=== PATIENT | male | born 1970 | race Caucasian/White ===

== ENCOUNTER 2017-06-03 10:46 | Emergency (ER) | payer BC, OTHER ==
[2017-06-03 10:54] VITALS: PULSE 67; TEMP 96.9
--- NOTE | 2017-06-03 11:45 | XR ---
EXAMINATION TYPE: XR foot complete LT DATE OF EXAM: 06/03/2017 CLINICAL HISTORY: Dropped box injury with pain TECHNIQUE: Frontal, lateral, and oblique images of the left foot are obtained. COMPARISON: None FINDINGS: There is no acute fracture/dislocation evident in the left foot. Some flexion in toes make s evaluation at this level slightly suboptimal. The joint spaces in the left foot appear within hina l limits. The overlying soft tissue appears unremarkable. IMPRESSION: There is no acute fracture or dislocation in the left foot.
--- NOTE | 2017-06-03 12:08 | ED ---
General Adult HPI - General Chief complaint: Extremity Injury, Lower Stated complaint: [facility]-Foot Lac Time Seen by Provider: 06/03/17 11:15 Source: patient, EMS, RN notes reviewed Mode of arrival: EMS Limitations: no limitations - History of Present Illness Initial comments: Patient's a 46-year-old male who presents emergency room today with a chief complaint of injury to the left foot that occurred at work. He states he accidentally dropped a box of tile onto his foot was caused a laceration. He states he does have tenderness to the first through third metatarsals. Patient does admit his tetanus is up-to-date. He denies any bites or symptoms. Patient denies any recent fever, chills, shortness of breath, chest pain, back pain, abdominal pain, nausea or vomiting, numbness or tingling, headaches or visual changes, or any other complaints. - Related Data Previous Rx's Medication Instructions Recorded Ibuprofen [Motrin] 600 mg PO Q6HR PRN #40 day 06/03/17 Allergies Allergy/AdvReac Type Severity Reaction Status Date / Time No Known Allergies Allergy Verified 06/03/17 11:00 Review of Systems ROS Statement: Those systems with pertinent positive or pertinent negative responses have been documented in the HPI. ROS Other: All systems not noted in ROS Statement are negative. Past Medical History Past Medical History: No Reported History History of Any Multi-Drug Resistant Organisms: None Reported Past Surgical History: Hernia Repair, Orthopedic Surgery Past Psychological History: No Psychological Hx Reported Smoking Status: Former smoker Past Alcohol Use History: None Reported Past Drug Use History: None Reported General Exam - General Exam Comments Initial Comments: General: The patient is awake and alert, in no distress, and does not appear acutely ill. Neck: The neck is supple, there is no tenderness or JVD. Musculoskeletal: Patient shows good range of motion of his toes and his ankle. There is no tenderness in these areas. He is mildly tender on palpation to the first through third metatarsal. Pulses equal bilaterally 2+. Strength 5/5. Neurological: A&O x 3. CN II-XII intact, There are no obvious motor or sensory deficits. Coordination appears grossly intact. Speech is normal. Skin: Patient does have a 1 cm linear laceration wound edges approximated with no active bleeding. Psychiatric: Normal mood and affect. Limitations: no limitations Course Vital Signs 06/03/17 10:48 Temperature 96.9 F L Pulse Rate 67 Respiratory 18 Rate Blood Pressure 129/92 O2 Sat by Pulse 96 Oximetry Medical Decision Making - Medical Decision Making X-ray reviewed negative for any acute fracture dislocation. Patient advised follow-up in 7-10 days if symptoms persist for repeat x-ray. Patient's wound dressed here in the emergency room and he'll be advised follow-up with employee health. Disposition Clinical Impression: Foot contusion, Laceration Disposition: HOME SELF-CARE Condition: Good Instructions: Foot Contusion (ED) Additional Instructions: Please follow-up with employee health as discussed. Please have repeat x-ray in 7-10 days if symptoms are not improving. Please return here to emergency room for any other concerns. Prescriptions: Ibuprofen [Motrin] 600 mg PO Q6HR PRN #40 day PRN Reason: Pain Referrals: None,Stated [Primary Care Provider] - 1-2 days Andrew Mayer DO [Doctor of Osteopathic Medicine] - 1-2 days Time of Disposition: 12:06
[2017-06-03 12:15] VITALS: BP 131/74; RESP 16
== END 2017-06-03 12:15 | disposition home or self-care (01) ==
LOC: EC 10:46
DX: S91.312A Laceration without foreign body, left foot, initial encounter (principal); Z87.891 Personal history of nicotine dependence; W20.8XXA Other cause of strike by thrown, projected or falling object, initial encounter; Y92.69 Other specified industrial and construction area as the place of occurrence of the external cause; Y99.0 Civilian activity done for income or pay
CPT/HCPCS: 99283

== ENCOUNTER → 2017-06-08 | Outpatient (CLI) | payer OTHER ==
--- NOTE | 2017-06-08 13:11 | US ---
EXAMINATION TYPE: US venous doppler duplex LE BI DATE OF EXAM: 06/08/2017 12:28 PM COMPARISON: NONE CLINICAL HISTORY: M79.661Rt leg pain, M79.662LT pain, S90.32XA Lt foot contusion. Injury to left foot , bilateral calf pain SIDE PERFORMED: Bilateral TECHNIQUE: The lower extremity deep venous system is examined utilizing real time linear array sonog jozef with graded compression, doppler sonography and color-flow sonography. VESSELS IMAGED: External Iliac Vein (EIV) Common Femoral Vein Deep Femoral Vein Greater Saphenous Vein * Femoral Vein Popliteal Vein Small Saphenous Vein * Proximal Calf Veins (* superficial vessels) Right Leg: Negative for DVT Left Leg: Negative for DVT Grayscale, color doppler, spectral doppler imaging performed of the deep veins of the bilateral lower extremities. There is normal flow, compressibility, vascular waveforms. IMPRESSION: No ultrasound evidence for acute DVT in either lower extremity.
== END | disposition home or self-care (01) ==
LOC: RADUSWWP 11:43
PROVIDERS: ATTEND Emergency Medicine
DX: S90.32XA Contusion of left foot, initial encounter (principal); M79.661 Pain in right lower leg; M79.662 Pain in left lower leg
CPT/HCPCS: 93970

== ENCOUNTER 2017-08-28 20:44 | Emergency (ER) | payer OTHER ==
[2017-08-28 20:55] VITALS: BP 119/78; PULSE 86; RESP 16; TEMP 97.6
== END 2017-08-28 21:30 | disposition home or self-care (01) ==
LOC: EC 20:44

== ENCOUNTER 2019-02-06 14:55 | Emergency (ER) | payer BC, OTHER ==
[2019-02-06 14:59] VITALS: TEMP 97.6
[2019-02-06] MEDS ORDERED: SODIUM CHLORIDE 0.9% 1,000 ML IV STA (15:10)
[2019-02-06] MEDS ORDERED: diphenhydrAMINE 50 MG/ML 1 ML VIAL IVP STA (15:10)
[2019-02-06] MEDS ORDERED: METOCLOPRAMIDE 5 MG/ML 2 ML VIAL IVP STA (15:10)
--- NOTE | 2019-02-06 15:20 | ED ---
General Adult HPI - General Chief complaint: Headache Stated complaint: Dizziness Time Seen by Provider: 02/06/19 15:00 Source: patient, RN notes reviewed, old records reviewed Mode of arrival: wheelchair Limitations: no limitations - History of Present Illness Initial comments: 48-year-old male patient presents to ED complaining of headache. Patient was headaches and waxing and waning for approximately last 2 days. Reports it is a left frontal headache. Patient reports that started yesterday around noon. Reports that it gradually increased in intensity. Denies rapid onset. Patient reports that he has had some nausea without emesis. Patient reports that he had migraine headaches as a child however has not had headaches and years. Also reports he has had some mild sinus congestion the last 2 days as well. Denies any other complaints. Systemic: Pt denies fatigue, fever/chills, rash. Pt denies weakness, night sweats, weight loss. Neuro: Pt denies visual disturbances, syncope or pre-syncope. HEENT: Pt denies ocular discharge or irritation, otalgia, rhinorrhea, pharyngitis or notable lymphadenopathy. Cardiopulmonary: Pt denies chest pain, SOB, heart palpitations, dyspnea on exertion. Abdominal/GI: Pt denies abdominal pain, n/v/d. : Pt denies dysuria, burning w/ urination, frequency/urgency. Denies new onset urinary or bowel incontinence. MSK: Pt denies myalgia, loss of strength or function in extremities. Neuro: Pt denies new onset weakness, paresthesias. - Related Data Previous Rx's Medication Instructions Recorded Ibuprofen [Motrin] 600 mg PO Q6HR PRN #40 day 06/03/17 Amoxicillin/Potassium Clav 1 each PO Q12HR 14 Days #7 tab 02/06/19 [Augmentin 875-125 Tablet] Allergies Allergy/AdvReac Type Severity Reaction Status Date / Time No Known Allergies Allergy Verified 02/06/19 14:59 Review of Systems ROS Statement: Those systems with pertinent positive or pertinent negative responses have been documented in the HPI. ROS Other: All systems not noted in ROS Statement are negative. Past Medical History Past Medical History: No Reported History History of Any Multi-Drug Resistant Organisms: None Reported Past Surgical History: Hernia Repair, Orthopedic Surgery Past Psychological History: No Psychological Hx Reported Smoking Status: Former smoker Past Alcohol Use History: None Reported Past Drug Use History: None Reported General Exam - General Exam Comments Initial Comments: Constitutional: NAD, AOX3, Pt has pleasant affect. HEENT: NC/AT, trachea midline, neck supple, no lymphadenopathy. Posterior pharynx non erythematous, without exudates. External ears appear normal, without discharge. Mucous membranes moist. Eyes PERRLA, EOM intact. There is no scleral icterus. No pallor noted. Cardiopulmonary: RRR, no murmurs, rubs or gallops, no JVD noted. Lungs CTAB in anterior and posterior lopez. No peripheral edema. Abdominal exam: Abdomen soft and non-distended. Abdomen non-tender to palpation in all 4 quadrants. Bowel sounds active in LLQ. No hepatosplenomegaly. No ecchymosis Neuro: CN II-XII intact. No nuchal rigidity. No raccon eyes, no graham sign, no hemotympanum. No cervical spinal tenderness. MSK: No posterior calf tenderness bilaterally, homans sign negative bilaterally. Posterior tibialis and radial pulse +2 bilaterally. Sensation intact in upper and lower extremities. Full active ROM in upper and lower extremities, 5/5 stregnth. Limitations: no limitations Course Vital Signs 02/06/19 02/06/19 14:57 16:25 Temperature 97.6 F Pulse Rate 75 72 Respiratory 18 16 Rate Blood Pressure 124/83 111/79 O2 Sat by Pulse 96 99 Oximetry Medical Decision Making - Medical Decision Making 48-year-old male patient presents to ED complaining of headache. Patient was headaches and waxing and waning for approximately last 2 days. Reports it is a left frontal headache. Patient reports that started yesterday around noon. Reports that it gradually increased in intensity. Denies rapid onset. Patient reports that he has had some nausea without emesis. Patient reports that he had migraine headaches as a child however has not had headaches and years. Also reports he has had some mild sinus congestion the last 2 days as well. Denies any other complaints. Patient will signs stable, afebrile. Physical exam displayed normal neurologic exam. CT brain without contrast displayed extensive sinus disease, no acute intracranial hemorrhage or mass effect or midline shift seen. Dense middle cerebral arteries are symmetric and felt likely to upset imaging artifact cerebral vascular calcification or hemoconcentration affect. These findings were relayed to patient. Patient etiology of headache likely sinus infection. Patient headache resolved without any analgesia. Patient discharged with Augmentin. These findings related to patient. Patient will follow-up with primary care friend will return to ER if condition worsens. Case discussed with dr. ontiveros. Disposition Clinical Impression: Acute headache, Sinusitis Disposition: HOME SELF-CARE Condition: Stable Instructions (If sedation given, give patient instructions): Acute Headache (ED), Sinusitis (ED) Additional Instructions: Follow up with primary care provider with results of CAT scan. Take antibiotics as directed. Return to ER if condition worsens. Follow-up with primary care provider in 1-2 days. Prescriptions: Amoxicillin/Potassium Clav [Augmentin 875-125 Tablet] 1 each PO Q12HR 14 Days #7 tab Is patient prescribed a controlled substance at d/c from ED?: No Referrals: None,Stated [Primary Care Provider] - 1-2 days [facility] [NON-STAFF] - 1-2 days
--- NOTE | 2019-02-06 15:46 | CT ---
EXAMINATION TYPE: CT brain wo con DATE OF EXAM: 02/06/2019 COMPARISON: Prior CT 12/30/2015 HISTORY: Headache, LT christianity behind eye CT DLP: 1103.4 mGycm. Automated Exposure Control for Dose Reduction was Utilized. TECHNIQUE: CT scan of the head is performed without contrast. FINDINGS: There is no acute intracranial hemorrhage, mass effect, or midline shift identified. Naheed pect possible choroidal fissure cysts on the left. Middle cerebral arteries appears somewhat dense bu t are symmetric in appearance. There are cerebral vascular calcifications present. The ventricles and sulci are within normal limits in size. The globes are intact and the visualized sinuses are remark able for inflammatory change within the right maxillary sinus, ethmoid air cells, right frontal sinus , sphenoid sinus similar to prior exam. Mastoids are well aerated. IMPRESSION: Extensive sinus disease. No acute intracranial hemorrhage, mass effect, or midline shift is seen. Dense middle cerebral arteries are symmetric and felt more likely to represent imaging grisel fact, cerebral vascular calcification or hemoconcentration effect. Consider MRI for increased sensiti vity as indicated.
[2019-02-06] MEDS ORDERED: AMOXIC-POT CLAV 875MG STARTER 2 EACH TABLET PO STA (16:02)
[2019-02-06] MEDS ORDERED: AMOXIC-POT CLAV 875-125MG 1 EACH TAB PO STA (16:02)
[2019-02-06] MEDS ORDERED: KETOROLAC 30 MG/ML 1 ML VIAL IVP STA (16:02)
[2019-02-06 16:27] VITALS: PULSE 72; RESP 16
[2019-02-06 17:29] VITALS: BP 113/78
== END 2019-02-06 17:00 | disposition home or self-care (01) ==
LOC: EC 14:55
DX: J32.9 Chronic sinusitis, unspecified (principal); Z87.891 Personal history of nicotine dependence
CPT/HCPCS: 70450; 99284; 96374; 96375; 96361; J1200; J2765

== ENCOUNTER 2020-08-24 06:19 | Emergency (ER) | payer BC, OTHER ==
[2020-08-24 06:44] VITALS: BP 156/96; PULSE 85; RESP 18; TEMP 97.6
--- NOTE | 2020-08-24 07:09 | ED ---
Lower Extremity Injury HPI - General Chief Complaint: Extremity Injury, Lower Stated Complaint: [facility] LT foot injury Time Seen by Provider: 08/24/20 06:48 Source: patient, RN notes reviewed Mode of arrival: ambulatory Limitations: no limitations - History of Present Illness Initial Comments: This a 49-year-old male presents emergency Department chief complaint of left ankle pain. Patient states is getting off his HILO stepped unevenly on a piece of wood states he rolled his ankle. Patient went to lateral left ankle pain and swelling. No paresthesias. Patient states that he is had no prior fractures no foot pain. Patient offers no other complaints. - Related Data Previous Rx's Medication Instructions Recorded Ibuprofen [Motrin] 600 mg PO Q6HR PRN #40 day 06/03/17 Amoxicillin/Potassium Clav 1 each PO Q12HR 14 Days #7 tab 02/06/19 [Augmentin 875-125 Tablet] Ibuprofen [Motrin] 600 mg PO Q8HR PRN #20 tab 08/24/20 Allergies Allergy/AdvReac Type Severity Reaction Status Date / Time No Known Allergies Allergy Verified 08/24/20 06:44 Review of Systems ROS Statement: Those systems with pertinent positive or pertinent negative responses have been documented in the HPI. ROS Other: All systems not noted in ROS Statement are negative. Past Medical History Past Medical History: No Reported History History of Any Multi-Drug Resistant Organisms: None Reported Past Surgical History: Hernia Repair, Orthopedic Surgery Past Psychological History: No Psychological Hx Reported Smoking Status: Former smoker Past Alcohol Use History: Occasional Past Drug Use History: None Reported General Exam Limitations: no limitations General appearance: alert, in no apparent distress Head exam: Present: atraumatic, normocephalic, normal inspection Respiratory exam: Present: normal lung sounds bilaterally. Absent: respiratory distress, wheezes, rales, rhonchi, stridor Cardiovascular Exam: Present: regular rate, normal rhythm, normal heart sounds. Absent: systolic murmur, diastolic murmur, rubs, gallop, clicks Extremities exam: Present: other (Left ankle lateral malleolar region there is significant swelling, tenderness palpation there is also mild medial malleolar tenderness no foot or proximal tib-fib tenderness neurovascular intact) Skin exam: Present: warm, dry, intact, normal color. Absent: rash Course Vital Signs 08/24/20 06:36 Temperature 97.6 F Pulse Rate 85 Respiratory 18 Rate Blood Pressure 156/96 O2 Sat by Pulse 95 Oximetry - Reevaluation(s) Reevaluation #1: 08/24/20 07:15 Patient was offered pain medication, upon initial evaluation patient declines Medical Decision Making - Medical Decision Making X-rays were reviewed no acute fracture as read by radiologist. Patient was placed in a stirrup Aircast will follow-up with [facility] and orthopedics as needed return parameters were discussed. Disposition Clinical Impression: Left ankle sprain Disposition: HOME SELF-CARE Condition: Stable Instructions (If sedation given, give patient instructions): Ankle Sprain (ED) Additional Instructions: Please return to the Emergency Department if symptoms worsen or any other concerns. Prescriptions: Ibuprofen [Motrin] 600 mg PO Q8HR PRN #20 tab PRN Reason: Pain Is patient prescribed a controlled substance at d/c from ED?: No Referrals: None,Stated [Primary Care Provider] - 1-2 days Brendon Donato MD [STAFF PHYSICIAN] - 1-2 days Time of Disposition: 07:39
--- NOTE | 2020-08-24 07:25 | XR ---
EXAMINATION TYPE: XR ankle complete LT DATE OF EXAM: 08/24/2020 COMPARISON: NONE HISTORY: 49-year-old male with pain, lateral swelling, rolling injury. TECHNIQUE: 3 views FINDINGS: Marked lateral soft tissue swelling. Underlying small ankle joint effusion. Ankle mortise a ppears congruent with preservation of the distal tibia-fibula overlap. Talar dome is intact. Subtalar joint align. Small delineation of the Achilles tendon. Os trigonum incidentally noted. No acute frac ture, subluxation, dislocation seen. IMPRESSION: Marked lateral sided soft tissue swelling. Correlate for underlying ligamentous injury. No acute osse ous abnormality seen.
== END 2020-08-24 08:06 | disposition home or self-care (01) ==
LOC: EC 06:19
DX: S93.402A Sprain of unspecified ligament of left ankle, initial encounter (principal); X50.1XXA Overexertion from prolonged static or awkward postures, initial encounter; Z87.891 Personal history of nicotine dependence
CPT/HCPCS: 29515; 99283

== ENCOUNTER → 2020-09-05 | Outpatient (CLI) | payer BC, OTHER ==
--- NOTE | 2020-09-05 09:50 | MR ---
EXAMINATION TYPE: MR ankle LT wo con DATE OF EXAM: 09/05/2020 COMPARISON: 08/24/2020 HISTORY: Sprain left ankle, pain Standard multiplanar, multisequence MRI departmental protocol Multiplanar, multisequence images of the left ankle were acquired. Diffusion weighted imaging was per formed. FINDINGS: Tendons: The Achilles tendon is unremarkable. There is a small amount of edema surrounding the peroneal tendon s and posterior tibial tendon, most consistent with tendinopathy. The anterior tendons are intact. Ligaments: The anterior and posterior tibiofibular and talofibular ligaments are intact. The deltoid ligament is intact. The calcaneofibular ligament is intact. Plantar fascia: Plantar fascia is unremarkable. Sinus tarsi: There is preservation of the normal fatty T1 signal in the sinus tarsi. Subtalar: The subtalar joint is unremarkable without evidence for coalition. Ankle joint: There is a small ankle joint effusion. There is no definite osteochondral defect. There are partial-t hickness articular cartilage defects of the ankle joint. Bone marrow: There is subchondral marrow edema of the midfoot, most consistent with degenerative changes. Muscle: Musculature is unremarkable. Other: There is subcutaneous edema about the mid foot and ankle. IMPRESSION: 1. Peroneal and posterior tibial tendinopathy. 2. Degenerative changes of the midfoot and ankle joint with ankle joint effusion. 3. Subcutaneous edema about the mid foot and ankle.
== END | disposition home or self-care (01) ==
LOC: RADMRIMAIN 08:16
PROVIDERS: ATTEND Emergency Medicine
DX: S93.402A Sprain of unspecified ligament of left ankle, initial encounter (principal); M67.874 Other specified disorders of tendon, left ankle and foot

== ENCOUNTER → 2020-09-20 | Outpatient (CLI) | payer OTHER ==
--- NOTE | 2020-09-20 11:07 | XR ---
EXAMINATION TYPE: XR foot complete LT DATE OF EXAM: 09/20/2020 Comparison: 06/03/2017 Clinical History: 50-year-old male S93.402D, pain after injury on 08/24/2020. Possible fluid in foot. Findings: Incidental Bundy's toe. Bipartite fibular sesamoid. No acute fracture, subluxation, or dislocation s een. Normal variation os trigonum. No periostitis or osteolysis. Impression: No acute osseous abnormality seen.
== END | disposition home or self-care (01) ==
LOC: RADXRMAIN 10:37
PROVIDERS: ATTEND Emergency Medicine
DX: M79.672 Pain in left foot (principal)

== ENCOUNTER 2021-02-11 08:25 | Emergency (ER) | payer BC ==
[2021-02-11 08:54] VITALS: RESP 18
[2021-02-11] MEDS ORDERED: CASIRIVIMAB (REGN10933) (EUA) 600 MG, IMDEVIMAB (REGN10987) (EUA) 600 MG in SODIUM CHLO... IVPB ONE (10:00)
[2021-02-11] MEDS ORDERED: SODIUM CHLORIDE 0.9% 50 ML IVPB ONE (10:00)
--- NOTE | 2021-02-11 10:11 | ED ---
General Adult HPI - General Chief complaint: Headache Stated complaint: headache Time Seen by Provider: 02/11/21 09:36 Source: patient, RN notes reviewed Mode of arrival: ambulatory Limitations: no limitations - History of Present Illness Initial comments: 50-year-old male presents emergency Department with chief complaint of headache, sore throat. Patient states that symptoms started last night return again today. Patient has mild aches no CVA cough, shortness breath, chest pain, nausea vomiting diarrhea constipation no sick contacts. - Related Data Previous Rx's Medication Instructions Recorded Ibuprofen [Motrin] 600 mg PO Q6HR PRN #40 day 06/03/17 Amoxicillin/Potassium Clav 1 each PO Q12HR 14 Days #7 tab 02/06/19 [Augmentin 875-125 Tablet] Ibuprofen [Motrin] 600 mg PO Q8HR PRN #20 tab 08/24/20 Allergies Allergy/AdvReac Type Severity Reaction Status Date / Time No Known Allergies Allergy Verified 02/11/21 08:49 Review of Systems ROS Statement: Those systems with pertinent positive or pertinent negative responses have been documented in the HPI. ROS Other: All systems not noted in ROS Statement are negative. Past Medical History Past Medical History: No Reported History History of Any Multi-Drug Resistant Organisms: None Reported Past Surgical History: Hernia Repair, Orthopedic Surgery Additional Past Surgical History / Comment(s): colonoscopy Past Psychological History: No Psychological Hx Reported Smoking Status: Former smoker Past Alcohol Use History: Occasional Past Drug Use History: None Reported General Exam Limitations: no limitations General appearance: alert, in no apparent distress Head exam: Present: atraumatic, normocephalic, normal inspection Eye exam: Present: normal appearance, PERRL, EOMI. Absent: scleral icterus, conjunctival injection, periorbital swelling ENT exam: Present: normal exam, normal oropharynx, mucous membranes moist, TM's normal bilaterally Neck exam: Present: normal inspection, full ROM. Absent: tenderness, meningismus, lymphadenopathy Respiratory exam: Present: normal lung sounds bilaterally. Absent: respiratory distress, wheezes, rales, rhonchi, stridor Cardiovascular Exam: Present: regular rate, normal rhythm, normal heart sounds. Absent: systolic murmur, diastolic murmur, rubs, gallop, clicks Course Vital Signs 02/11/21 08:50 Temperature 98.4 F Pulse Rate 83 Respiratory 18 Rate Blood Pressure 135/74 O2 Sat by Pulse 96 Oximetry Medical Decision Making - Medical Decision Making Patient is positive for COVID-19 will be discharged after monoclonal antibodies return parameters were discussed. - Lab Data Lab Results 02/11/21 Range/Units 08:56 Coronavirus (PCR) Detected A (Not Detectd) Disposition Clinical Impression: COVID-19 Disposition: HOME SELF-CARE Condition: Stable Instructions (If sedation given, give patient instructions): Coronavirus Disease 2019 (COVID-19) Additional Instructions: Please return to the Emergency Department if symptoms worsen or any other concerns. Is patient prescribed a controlled substance at d/c from ED?: No Referrals: Patrice Obrien DO [Primary Care Provider] - 1-2 days Time of Disposition: 10:10
[2021-02-11 11:40] VITALS: BP 109/76; PULSE 77; TEMP 98.1
== END 2021-02-11 11:45 | disposition home or self-care (01) ==
LOC: EC 08:25
DX: U07.1 COVID-19 (principal); Z87.891 Personal history of nicotine dependence
CPT/HCPCS: 87635; 99284; 96365; 96361; Q0243

== ENCOUNTER 2022-11-20 10:44 | Inpatient (IN) | payer BC ==
--- NOTE | 2022-11-20 11:06 | ED ---
Abdominal Pain HPI - General Chief Complaint: Abdominal Pain Stated Complaint: Abd Pain Time Seen by Provider: 11/20/22 10:49 Source: patient, RN notes reviewed Mode of arrival: ambulatory Limitations: no limitations - History of Present Illness Initial Comments: This is a 52-year-old male who presents to the emergency department for right lower quadrant abdominal pain. He has had an intermittent sharp pain in the right lower quadrant region over the last couple weeks, however yesterday and today it became much worse and started to feel different. States that the pain is worse with movement. Denies any history of similar symptoms in the past. A lso denies any associated nausea, vomiting, or changes in bowel/bladder habits. Denies any fevers, chills, sore throat, cough, dyspnea, chest pain, palpitations, nausea, vomiting, diarrhea, back pain, or headaches. MD Complaint: abdominal pain Location: RLQ - Related Data Home Medications Medication Instructions Recorded Confirmed Atorvastatin [Lipitor] 10 mg PO DAILY 02/11/21 11/20/22 Losartan [Cozaar] 25 mg PO DAILY 02/11/21 11/20/22 Allergies Allergy/AdvReac Type Severity Reaction Status Date / Time No Known Allergies Allergy Verified 11/20/22 12:33 Review of Systems ROS Statement: Those systems with pertinent positive or pertinent negative responses have been documented in the HPI. ROS Other: All systems not noted in ROS Statement are negative. Past Medical History Past Medical History: No Reported History History of Any Multi-Drug Resistant Organisms: None Reported Past Surgical History: Hernia Repair, Orthopedic Surgery Additional Past Surgical History / Comment(s): colonoscopy Past Psychological History: No Psychological Hx Reported Smoking Status: Former smoker Past Alcohol Use History: Occasional Past Drug Use History: None Reported General Exam Limitations: no limitations General appearance: alert, in no apparent distress Head exam: Present: atraumatic, normocephalic, normal inspection Respiratory exam: Present: normal lung sounds bilaterally. Absent: respiratory distress, wheezes, rales, rhonchi, stridor Cardiovascular Exam: Present: regular rate, normal rhythm, normal heart sounds. Absent: systolic murmur, diastolic murmur, rubs, gallop, clicks GI/Abdominal exam: Present: soft, tenderness (RLQ), normal bowel sounds. Absent: distended Neurological exam: Present: alert, oriented X3, CN II-XII intact Psychiatric exam: Present: normal affect, normal mood Skin exam: Present: warm, dry, intact, normal color. Absent: rash Course Vital Signs 11/20/22 11/20/22 10:45 12:47 Temperature 97.9 F Pulse Rate 100 78 Respiratory 16 18 Rate Blood Pressure 148/83 142/80 O2 Sat by Pulse 97 98 Oximetry Medical Decision Making - Medical Decision Making This is a 52-year-old male who presents to the emergency department for abdominal pain. Was pt. sent in by a medical professional or institution? @ -No Did you speak to anyone other than the patient for history? @ -No Did you review nursing and triage notes? @ -Yes, and I agree, it is accurate with regards to the patient's symptoms. Were old charts reviewed? @ -No Differential Diagnosis? @ -Differential Abdominal Pain Men: Appendicitis, cholecystitis, diverticulosis, ischemic bowel, pancreatitis, hepatitis, UTI, gastroenteritis, AAA, incarcerated hernia, bowel obstruction, constipation, inflammatory bowel, hepatitis, peptic ulcer disease, splenic infarction, perforated viscus, testicular torsion, this is not meant to be an all-inclusive list EKG interpreted by me (3pts min.)? @ -EKG interpreted by me demonstrating the following: Sinus rhythm. Ventricular rate 65 bpm, CO interval 129 ms, QRS duration 73 ms, QTC 382 ms. X-rays interpreted by me (1pt min.)? @ -Not obtained CT interpreted by me (1pt min.)? @ -Computed tomography scan of the abdomen and pelvis obtained. My interpretation identifies dilation of the proximal appendix. U/S interpreted by me (1pt. min.)? @ -Not obtained What testing was considered but not performed? (CT, X-rays, U/S, labs)? Why? @ -None What meds were considered but not given? Why? @ -None Did you discuss the management of the patient with other professionals? @ -Yes, Dr. Mcgrath, who accepts the patient for admission. Did you reconcile home meds? @ -No Was smoking cessation discussed for >3mins.? @ -No Was critical care preformed (if so, how long)? @ -No Were there social determinants of health that impacted care today? How? (Homelessness, low income, unemployed, alcoholism, drug addiction, transportation, low edu. Level, literacy, decrease access to med. care, custodial, rehab)? @ -No Was there de-escalation of care discussed even if they declined? (Discuss DNR or withdrawal of care, Hospice)? @ -No What co-morbidities impacted this encounter? (DM, HTN, Smoking, COPD, CAD, Cancer, CVA, Hep., AIDS, mental health diagnosis, sleep apnea, morbid obesity)? @ -None Was patient admitted / discharged? @ -Admitted. Lab work obtained and found to be nonactionable. Patient declined the need for pain medication in the emergency department. Computed tomography scan of the abdomen and pelvis obtained revealing suspected acute proximal appendicitis, however typhlitis cannot be excluded. Case discussed with Dr. Mcgrath, general surgery. She advised that typhlitis would not require surgical intervention like an appendicitis would. Given the higher likelihood for appendicitis, even in the absence of leukocytosis or fevers, it would be best to admit the patient for further evaluation and management. He was started on IV fluids and Zosyn. Blood cultures obtained. We'll keep patient NPO in the event surgical intervention is needed. Undiagnosed new problem with uncertain prognosis? @ -None Drug Therapy requiring intensive monitoring for toxicity (Heparin, Nitro, Insuli n, Cardizem)? @ -None Were any procedures done? @ -None Diagnosis/symptom? @ -Acute appendicitis Acute, or Chronic, or Acute on Chronic? @ -Acute Uncomplicated (without systemic symptoms) or Complicated (systemic symptoms)? @ -Uncomplicated Side effects of treatment? @ -None Exacerbation, Progression, or Severe Exacerbation] @ -Not applicable Poses a threat to life or bodily function? @ -No This case was discussed in detail with the attending ED physician, Dr. Belcher. Presentation, findings, and treatment plan discussed in detail as well. - Lab Data Result diagrams: 11/20/22 11:10 11/20/22 11:10 Lab Results 11/20/22 11/20/22 11/20/22 Range/Units 11:10 11:10 11:10 WBC 5.2 (3.8-10.6) k/uL RBC 5.34 (4.30-5.90) m/uL Hgb 16.4 (13.0-17.5) gm/dL Hct 49.3 (39.0-53.0) % MCV 92.4 (80.0-100.0) fL MCH 30.7 (25.0-35.0) pg MCHC 33.2 (31.0-37.0) g/dL RDW 12.3 (11.5-15.5) % Plt Count 333 (150-450) k/uL MPV 6.9 Neutrophils % (Manual) 60 % Lymphocytes % (Manual) 31 % Monocytes % (Manual) 8 % Eosinophils % (Manual) 2 % Basophils % (Manual) 1 % Neutrophils # (Manual) 3.12 (1.3-7.7) k/uL Lymphocytes # (Manual) 1.61 (1.0-4.8) k/uL Monocytes # (Manual) 0.42 (0-1.0) k/uL Eosinophils # (Manual) 0.10 (0-0.7) k/uL Basophils # (Manual) 0.05 (0-0.2) k/uL Nucleated RBCs 0 (0-0) /100 WBC Manual Slide Review Performed RBC Morphology Normal Sodium 137 (137-145) mmol/L Potassium 4.5 (3.5-5.1) mmol/L Chloride 103 (98-107) mmol/L Carbon Dioxide 26 (22-30) mmol/L Anion Gap 8 mmol/L BUN 21 H (9-20) mg/dL Creatinine 0.86 (0.66-1.25) mg/dL Est GFR (CKD-EPI)AfAm >90 (>60 ml/min/1.73 sqM) Est GFR (CKD-EPI)NonAf >90 (>60 ml/min/1.73 sqM) Glucose 108 H (74-99) mg/dL Plasma Lactic Acid Cory 1.6 (0.7-2.0) mmol/L Calcium 8.8 (8.4-10.2) mg/dL Total Bilirubin 0.4 (0.2-1.3) mg/dL AST 24 (17-59) U/L ALT 22 (4-49) U/L Alkaline Phosphatase 67 (38-126) U/L Total Protein 7.1 (6.3-8.2) g/dL Albumin 4.1 (3.5-5.0) g/dL - Radiology Data Radiology results: report reviewed, image reviewed Disposition Clinical Impression: Acute appendicitis Disposition: ADMITTED IP TO THIS HOSP
[2022-11-20 11:39] LABS: ALT 22 U/L (4-49); AST 24 U/L (17-59); African American GFR (CKD) >90 (>60 ml/min/1.73 sqM); Albumin 4.1 g/dL (3.5-5.0); Alkaline Phosphatase 67 U/L (38-126); Anion Gap 8 mmol/L; Blood Urea Nitrogen 21 mg/dL (9-20); Calcium 8.8 mg/dL (8.4-10.2); Carbon Dioxide 26 mmol/L (22-30); Chloride 103 mmol/L (98-107); Glucose 108 mg/dL (74-99); Non-African American GFR(CKD) >90 (>60 ml/min/1.73 sqM); Potassium 4.5 mmol/L (3.5-5.1); Sodium 137 mmol/L (137-145); Total Bilirubin 0.4 mg/dL (0.2-1.3); Total Protein 7.1 g/dL (6.3-8.2)
[2022-11-20 11:41] LABS: HCT 49.3 % (39.0-53.0); HGB 16.4 gm/dL (13.0-17.5); MCH 30.7 pg (25.0-35.0); MCHC 33.2 g/dL (31.0-37.0); MCV 92.4 fL (80.0-100.0); Mean Platelet Volume 6.9; Platelet Count 333 k/uL (150-450); RBC 5.34 m/uL (4.30-5.90); RDW 12.3 % (11.5-15.5); WBC 5.2 k/uL (3.8-10.6)
[2022-11-20 12:33] LABS: Basophils # (M) 0.05 k/uL (0-0.2); Lymphocytes # (M) 1.61 k/uL (1.0-4.8); Monocytes # (M) 0.42 k/uL (0-1.0); Neutrophils # (M) 3.12 k/uL (1.3-7.7); Neutrophils % (M) 60 %; Nucleated Red Blood Cells 0 /100 WBC (0-0); RBC Morphology Normal; Total Cells Counted 200
--- NOTE | 2022-11-20 13:02 | CT ---
EXAMINATION TYPE: CT abdomen pelvis w con DATE OF EXAM: 11/20/2022 COMPARISON: None INDICATION: RLQ pain DLP: 1579.3 mGycm, Automated exposure control for dose reduction was used. CONTRAST: 100 mL of Isovue 300. Study performed without Oral Contrast TECHNIQUE: Axial images were obtained from above the diaphragm to the pubic rami in the axial plane a t 5 mm thick sections. Reconstructed images are reviewed on the computer in the coronal plane. FINDINGS: Limited CT sections are obtained the lung bases. The lung bases are clear. CT ABDOMEN: Liver: There is a 1 cm cyst within the anterior medial right lobe liver. Spleen: Normal Pancreas: Normal Adrenal glands: The adrenal glands are normal. Gallbladder: Normal Kidneys: No masses are evident. No hydronephrosis is present. No cysts are present. Delayed images were obtained through the kidneys, which remain unremarkable. Aorta: Vascular calcification is within the aorta. Inferior vena cava: Normal. CT PELVIS: Loops of bowel within the abdomen and pelvis are normal. There are loops of bowel which are incom pletely distended or lack oral contrast limiting their evaluation. Appendix: Proximal appendix is prominent measuring 1.3 cm. Inflammatory changes are at the base of th e appendix and adjacent to the cecum. The distal appendix has a normal caliber and is air filled with out wall thickening. Early acute appendicitis should be considered at the base of the appendix. Typhl itis could be considered within the differential. Report was called and case discussed with the emerg ency room at the time of interpretation. Urinary bladder: Normal. Genitourinary structures: Prostate is normal size. There may be some subtle heterogeneous density wit hin the prostate. Consider additional evaluation when the patient is stable. Osseous structures: No suspicious lytic or sclerotic lesions. Spondylolysis of L5 is evident. IMPRESSION: 1. Suspected proximal appendix acute appendicitis. Typhlitis may be considered, but less likely, wit hin the differential.
[2022-11-20] MEDS ORDERED: PIPERACILLIN-TAZOBACTAM 3.375 GM in SODIUM CHLORIDE 0.9% 100 ML IVPB STA (13:09)
[2022-11-20] MEDS ORDERED: NALOXONE 0.4 MG/ML 1 ML VIAL IV PRN (13:31)
[2022-11-20] MEDS ORDERED: ONDANSETRON 4 MG/2 ML VIAL IVP PRN (13:31)
[2022-11-20] MEDS ORDERED: ACETAMINOPHEN IV (For NPO) 1,000 MG in EMPTY BAG 1 BAG IVPB PRN (13:32)
[2022-11-20 15:56] LABS: Appearance,Urine Clear (Clear); Bilirubin,Urine Negative (Negative); Blood,Urine Small (Negative); Color,Urine Colorless; Glucose,Urine (UA) Negative (Negative); Ketones,Urine Negative (Negative); Leukocyte Esterase,Urine Negative (Negative); Nitrite,Urine Negative (Negative); Protein,Urine Negative (Negative); RBC,Urine 3 /hpf (0-5); Specific Gravity,Urine >1.050 (1.001-1.035); Urobilinogen,Urine <2.0 mg/dL (<2.0); WBC,Urine 1 /hpf (0-5)
[2022-11-20] MEDS: SODIUM CHLORIDE 0.9% 1,000 ML IV SCH ×2 (16:40→22:18)
[2022-11-20] MEDS: PIPERACILLIN-TAZOBACTAM 3.375 GM in SODIUM CHLORIDE 0.9% 100 ML IVPB SCH (20:21)
[2022-11-21] MEDS: PIPERACILLIN-TAZOBACTAM 3.375 GM in SODIUM CHLORIDE 0.9% 100 ML IVPB SCH ×3 (03:02→21:58)
[2022-11-21] MEDS: SODIUM CHLORIDE 0.9% 1,000 ML IV SCH ×3 (06:37→23:12)
--- NOTE | 2022-11-21 13:08 | P.PN ---
Subjective Progress Note Date: 11/21/22 CHIEF COMPLAINT: Appendicitis HISTORY OF PRESENT ILLNESS: Patient presented with right lower quadrant abd ominal pain and found to have an acute appendicitis. Patient scheduled for robotic appendectomy today. Afebrile. WBC 5.2 PHYSICAL EXAM: VITAL SIGNS: Reviewed GENERAL: Well-developed in no acute distress. HEENT: No sclera icterus. Extraocular movements grossly intact. Moist buccal mucosa. Head is atraumatic, normocephalic. Hears conversational speech. No nasal drainage. NECK: Supple without lymphadenopathy. CHEST: Non-labored respirations and equal bilateral excursions. CARDIOVASCULAR: Palpable 2+ radial pulses. ABDOMEN: Soft. Nondistended. Tenderness right lower quadrant MUSCULOSKELETAL: No clubbing or cyanosis. NEUROLOGIC: No focal or lateralizing signs. Cranial nerves II through XII grossly intact. PSYCH: Appropriate affect. Alert and oriented to person, place and time. SKIN: Well perfused. Good skin turgor. ASSESSMENT: 1. Acute appendicitis PLAN: -Patient scheduled for Robotic Appendectomy today -Okay for clear liquid diet this morning. Then keep patient nothing by mouth starting at lunch -Continue IV antibiotics -Continue supportive care Physician Foreign Diplomat note has been reviewed by physician. Signing provider agrees with the documented findings, assessment, and plan of care. Objective - Vital Signs Vital signs: Vital Signs Temp 97.5 F L 11/21/22 07:00 Pulse 57 L 11/21/22 07:00 Resp 16 11/21/22 07:00 BP 107/68 11/21/22 07:00 Pulse Ox 95 11/21/22 07:00 FiO2 Intake & Output 11/20/22 11/21/22 11/21/22 18:59 06:59 18:59 Weight 97.069 kg Other: # Voids 2 - Labs CBC & Chem 7: 11/20/22 11:10 11/20/22 11:10 Labs: Abnormal Lab Results - Last 24 Hours (Table) 11/20/22 Range/Units 11:10 Ur Specific [place] >1.050 H (1.001-1.035) Urine Blood Small H (Negative)
--- NOTE | 2022-11-21 14:16 | P.GSHP ---
History of Present Illness H&P Date: 11/20/22 CHIEF COMPLAINT: Right lower quadrant abdominal pain HISTORY OF PRESENT ILLNESS: The patient is a 52-year-old male who presents ever week history of generalized abdominal pain. Yesterday reports the pain localized right lower quadrant. Reports generalized malaise. No previous episodes. Comorbidities include hypertension and hyperlipidemia. Diagnostic studies demonstrated appendicitis. PAST MEDICAL HISTORY: See list and reviewed PAST SURGICAL HISTORY: See list and reviewed CURRENT MEDICATIONS: See list and reviewed ALLERGIES: See list and reviewed SOCIAL HISTORY: See list and reviewed FAMILY HISTORY: See list and reviewed REVIEW OF ORGAN SYSTEMS: CONSTITUTIONAL: Present fever, no chills. Denies recent weight loss. HEENT: Denies any trouble with vision, hearing or nosebleeds. No difficulty swallowing. LYMPHATIC: The patient denies any lumps and bumps around the neck. ENDOCRINE: Denies any thyroid disorders. Denies any blood sugar glucose intolerance. RESPIRATORY: Denies shortness of breath including chronic cough. CARDIOVASCULAR: Denies history of chest pain with exertion. GASTROINTESTINAL: Denies regurgitation of bile at night as well as intermittent nausea. No blood in stools. GENITOURINARY: Denies any blood in urine or increased urinary frequency. MUSCULOSKELETAL: Denies current joint arthritis. NEUROLOGIC: Denies any numbness or tingling along the distal extremities. No seizure disorders or headaches. PSYCHIATRIC: Denies any depression or suicidal ideation. HEMATOLOGIC: Denies any abnormal bleeding or bruising. PHYSICAL EXAMINATION: VITALS: Reviewed. GENERAL: Well-developed and in no acute distress. Pleasant. HEENT: No sclera icterus. Extraocular movements grossly intact. Moist buccal mucosa. Head is atraumatic, normocephalic. Hears conversational speech. No nasal drainage. NECK: Supple without lymphadenopathy. No JV distention. CHEST: Non-labored respirations and equal bilateral excursions. CARDIOVASCULAR: Regular rate and rhythm. Palpable 2+ radial pulses. ABDOMEN: Soft, tender at the right lower quadrant without guarding. MUSCULOSKELETAL: No clubbing, cyanosis or edema. NEUROLOGIC: No focal or lateralizing signs. PSYCH: Appropriate affect. Alert and oriented to person, place and time. SKIN: Well perfused. Good skin turgor. LABS: Reviewed. STUDIES: CT of the abdomen and pelvis reviewed with findings consistent with appendicitis. ASSESSMENT: 1. Right lower quadrant pain. 2. Appendicitis PLAN: 1. I have discussed benefits and risks of robotic appendectomy. 2. Bilateral SCDs. 3. Antibiotics intravenous Thank you very much for allowing me to participate in the care of your patient. Past Medical History Past Medical History: No Reported History History of Any Multi-Drug Resistant Organisms: None Reported Past Surgical History: Hernia Repair, Orthopedic Surgery Additional Past Surgical History / Comment(s): colonoscopy Past Psychological History: No Psychological Hx Reported Smoking Status: Former smoker Past Alcohol Use History: Occasional Past Drug Use History: None Reported Medications and Allergies Home Medications Medication Instructions Recorded Confirmed Type Atorvastatin [Lipitor] 10 mg PO DAILY 02/11/21 11/20/22 History Losartan [Cozaar] 25 mg PO DAILY 02/11/21 11/20/22 History Allergies Allergy/AdvReac Type Severity Reaction Status Date / Time No Known Allergies Allergy Verified 11/20/22 12:33 Surgical - Exam Vital Signs Temp Pulse Resp BP Pulse Ox 97.9 F 100 16 148/83 97 11/20/22 10:45 11/20/22 10:45 11/20/22 10:45 11/20/22 10:45 11/20/22 10:45 Results - Labs 11/20/22 11:10 11/20/22 11:10 Abnormal Lab Results - Last 24 Hours (Table) 11/20/22 11/20/22 Range/Units 11:10 11:10 BUN 21 H (9-20) mg/dL Glucose 108 H (74-99) mg/dL Ur Specific [place] >1.050 H (1.001-1.035) Urine Blood Small H (Negative) Diabetes panel 11/20/22 Range/Units 11:10 Sodium 137 (137-145) mmol/L Potassium 4.5 (3.5-5.1) mmol/L Chloride 103 (98-107) mmol/L Carbon Dioxide 26 (22-30) mmol/L BUN 21 H (9-20) mg/dL Creatinine 0.86 (0.66-1.25) mg/dL Glucose 108 H (74-99) mg/dL Calcium 8.8 (8.4-10.2) mg/dL AST 24 (17-59) U/L ALT 22 (4-49) U/L Alkaline Phosphatase 67 (38-126) U/L Total Protein 7.1 (6.3-8.2) g/dL Albumin 4.1 (3.5-5.0) g/dL Calcium panel 11/20/22 Range/Units 11:10 Calcium 8.8 (8.4-10.2) mg/dL Albumin 4.1 (3.5-5.0) g/dL Pituitary panel 11/20/22 Range/Units 11:10 Sodium 137 (137-145) mmol/L Potassium 4.5 (3.5-5.1) mmol/L Chloride 103 (98-107) mmol/L Carbon Dioxide 26 (22-30) mmol/L BUN 21 H (9-20) mg/dL Creatinine 0.86 (0.66-1.25) mg/dL Glucose 108 H (74-99) mg/dL Calcium 8.8 (8.4-10.2) mg/dL Adrenal panel 11/20/22 Range/Units 11:10 Sodium 137 (137-145) mmol/L Potassium 4.5 (3.5-5.1) mmol/L Chloride 103 (98-107) mmol/L Carbon Dioxide 26 (22-30) mmol/L BUN 21 H (9-20) mg/dL Creatinine 0.86 (0.66-1.25) mg/dL Glucose 108 H (74-99) mg/dL Calcium 8.8 (8.4-10.2) mg/dL Total Bilirubin 0.4 (0.2-1.3) mg/dL AST 24 (17-59) U/L ALT 22 (4-49) U/L Alkaline Phosphatase 67 (38-126) U/L Total Protein 7.1 (6.3-8.2) g/dL Albumin 4.1 (3.5-5.0) g/dL
[2022-11-21] MEDS: MORPHINE SULFATE 2 MG/ML SYRINGE IVP PRN (17:09)
[2022-11-21] MEDS ORDERED: PROPOFOL 10 MG/ML 20 ML VIAL IV ONE (18:46)
[2022-11-21] MEDS ORDERED: NEOSTIGMINE 1 MG/ML 10 ML VIAL ONE (18:46)
[2022-11-21] MEDS ORDERED: KETOROLAC 15 MG/ML 1 ML VIAL ONE (18:46)
[2022-11-21] MEDS ORDERED: GLYCOPYRROLATE 0.2 MG/ML 2 ML VIAL ONE (18:46)
[2022-11-21] MEDS ORDERED: ROCURONIUM 10 MG/ML (5 ML VIAL) IV ONE (18:46)
[2022-11-21] MEDS ORDERED: DEXAMETHASONE SOD PHOSPHATE 4 MG/ML 1 ML VIAL ONE (18:46)
[2022-11-21] MEDS ORDERED: SUCCINYLCHOLINE CHLORIDE 200 MG/10 ML VIAL IV ONE (18:46)
[2022-11-21] MEDS ORDERED: fentaNYL (PF) 50 MCG/ML 2 ML AMP ONE (18:46)
[2022-11-21] MEDS ORDERED: HEPARIN SODIUM,PORCINE 5,000 UNIT/ML 1 ML VIAL ONE (18:46)
[2022-11-21] MEDS ORDERED: MIDAZOLAM 2 MG/2 ML VIAL ONE (18:46)
[2022-11-21] MEDS ORDERED: ONDANSETRON 4 MG/2 ML VIAL ONE (18:46)
[2022-11-21] MEDS ORDERED: LIDOCAINE 2% INJ 20 MG/ML (2 ML VIAL) ONE (18:46)
[2022-11-21] MEDS ORDERED: LACTATED RINGERS 1,000 ML IV ONE (18:48)
[2022-11-21] MEDS ORDERED: BUPIVACAINE (PF) 0.5% 30 ML VIAL SQ ONE (19:12)
--- NOTE | 2022-11-21 20:45 | P.OP ---
Date of Procedure: 11/21/22 Description of Procedure: SURGEON: JONATHAN MIRANDA MD Preoperative Diagnosis: 1. Acute appendicitis Postoperative Diagnosis: 1. Acute appendicitis, retrocecal with periappendicitis Procedure(s) Performed: 1. Robotic-assisted daVinci Xi laparoscopic appendectomy Anesthesia: GETA, local Estimated Blood Loss (ml): 10 Pathology: other (appendix) Condition: stable Disposition: floor Operative Findings: 1. Acute appendicitis without rupture with periappendicitis, retrocecal 2. Terminal ileum unremarkable 3. Cecum unremarkable 4. Appendix coursing along the retroperitoneum through redundant ascending colon towards the gallbladder adding complexity to the case 5. Extensive adhesional lysis for mobilizing mesial appendix and appendix over 45 minutes 6. Right lower quadrant peritoneal adhesions with inguinal hernia, indirect INDICATIONS: The patient is a 52-year-old male who presents with over several week history with abdominal pain and diagnostic imaging of acute appendicitis. Benefits and risks, including infection, open surgery, and bleeding for additional surgery was discussed at length. Informed consent was obtained. All questions of the patient and family were answered. DESCRIPTION: The patient was transferred to the operating room and placed in supine position. The patient had previously voided. The abdomen was then prepped and draped in standard sterile fashion as [place]an was placed along the abdomen to minimize any contamination of skin floor. After a timeout protocol was performed, attention was then brought to the left upper quadrant whereby a 0 degree 5 mm laparoscopic trocar entry was performed. The abdominal cavity was entered and insufflated to 12 mmHg pressure, which was tolerated well. Diagnostic laparoscopy demonstrated no injury to bowel, viscera or mesentery. Next a robotic 8-mm trocar was placed along the left lower quadrant, 10-cm lateral to the midline. A 12 mm port was placed along the left upper quadrant and another 8-mm port left lateral abdominal wall. Ports were placed 8 cm apart from each other including 15-20 cm away from the target anatomy of the right pelvis. The patient was then placed in Trendelenburg position, at least 14 down and right side up at least 7. The robotic da Mango XI system was primed and docked from the left side of the patient. Using atraumatic graspers and vessel sealer, the robotic system was docked and primed as described. Instruments were interchanged by the personal care assistant including graspers, robotic stapler and vessel sealer. Next, attention was brought to identify the cecum. A systematic view within the abdominal cavity was started with the small bowel which was unremarkable. The base of the cecum was unremarkable. The appendix was retrocecal coursing towards right upper quadrant behind the ascending colon with additional dissection required. The body of the appendix was moderately dilated with moderate periappendicitis. No perforation was identified. The appendix was dissected free from its surrounding tissues. Blue 45 mm robotic staple loads were fired along the base of the appendix. The staple line was hemostatic. Hemostasis was checked prior to undocking the robot. The robot was undocked. I re-scrubbed into the case. The specimen was removed from the abdominal cavity with an Endo Catch bag through the 12 mm trocar at the left upper quadrant. All instruments and pneumoperitoneum were evacuated from the abdominal cavity. Local anesthetic was infiltrated to all wounds for postop analgesia. All incisions were also cleansed with diluted hydrogen peroxide. The incisions were closed with 4-0 Monocryl. Exofin glue was applied to the rest of the skin incisions. The patient had tolerated the procedure well. The patient was extubated successfully. The patient was transferred to the postanesthesia care unit in stable condition.
[2022-11-21] MEDS ORDERED: ACETAMINOPHEN IV (For NPO) 1,000 MG in EMPTY BAG 1 BAG IVPB ONE (20:46)
[2022-11-21] MEDS ORDERED: HYDROmorphone 1 MG/ML 1 ML SYRINGE IVP PRN (20:46)
[2022-11-21] MEDS ORDERED: ONDANSETRON 4 MG/2 ML VIAL IVP ONE (20:59)
[2022-11-21] MEDS: MORPHINE SULFATE 4 MG/ML SYRINGE IV PRN (23:18)
[2022-11-22] MEDS: PIPERACILLIN-TAZOBACTAM 3.375 GM in SODIUM CHLORIDE 0.9% 100 ML IVPB SCH ×3 (04:31→20:11)
[2022-11-22] MEDS: SODIUM CHLORIDE 0.9% 1,000 ML IV SCH ×3 (04:33→18:22)
[2022-11-22] MEDS: MORPHINE SULFATE 4 MG/ML SYRINGE IV PRN (08:42)
[2022-11-22 09:20] LABS: Basophils % (A) 0 %; Eosinophils % (A) 0 %; HCT 45.9 % (39.0-53.0); Lymphocytes # (A) 0.6 k/uL (1.0-4.8); Lymphocytes % (A) 7 %; MCH 30.4 pg (25.0-35.0); MCHC 32.7 g/dL (31.0-37.0); MCV 92.8 fL (80.0-100.0); Mean Platelet Volume 7.7; Monocytes # (A) 0.5 k/uL (0-1.0); Monocytes % (A) 5 %; Neutrophils # (A) 7.9 k/uL (1.3-7.7); Neutrophils % (A) 86 %; Platelet Count 343 k/uL (150-450); RBC 4.95 m/uL (4.30-5.90); RDW 12.7 % (11.5-15.5); WBC 9.1 k/uL (3.8-10.6)
[2022-11-22 10:00] LABS: ALT 20 U/L (4-49); AST 24 U/L (17-59); African American GFR (CKD) >90 (>60 ml/min/1.73 sqM); Albumin 3.6 g/dL (3.5-5.0); Albumin/Globulin Ratio 1.2; Alkaline Phosphatase 77 U/L (38-126); Anion Gap 9 mmol/L; Blood Urea Nitrogen 17 mg/dL (9-20); Calcium 8.3 mg/dL (8.4-10.2); Carbon Dioxide 23 mmol/L (22-30); Chloride 102 mmol/L (98-107); Globulin 2.9 g/dL; Glucose 126 mg/dL (74-99); Non-African American GFR(CKD) >90 (>60 ml/min/1.73 sqM); Potassium 4.4 mmol/L (3.5-5.1); Sodium 134 mmol/L (137-145); Total Bilirubin 0.5 mg/dL (0.2-1.3); Total Protein 6.5 g/dL (6.3-8.2)
[2022-11-22] MEDS ORDERED: SODIUM CHLORIDE 0.9% 2,000 ML IV ONE (10:41)
[2022-11-22] MEDS: KETOROLAC 15 MG/ML 1 ML VIAL IVP SCH ×2 (11:23→18:17)
[2022-11-22] MEDS: ACETAMINOPHEN TAB 500 MG TAB PO SCH ×2 (11:23→18:19)
[2022-11-22] MEDS: GABAPENTIN 300 MG CAP PO SCH ×3 (11:24→20:11)
--- NOTE | 2022-11-22 15:11 | P.PN ---
Subjective Progress Note Date: 11/22/22 Reports right upper quadrant abdominal pain after eating sausages. Intraoperatively adhesions of gallbladder found. Surgery findings reviewed for retrocecal appendicitis. Will obtain US for gallstones due to clinical findings and symptoms. Objective - Vital Signs Vital signs: Vital Signs Temp 97.8 F 11/22/22 07:00 Pulse 69 11/22/22 07:00 Resp 16 11/22/22 07:00 BP 107/58 11/22/22 07:00 Pulse Ox 95 11/22/22 07:00 FiO2 Intake & Output 11/21/22 11/22/22 11/22/22 18:59 06:59 18:59 Intake Total 850 0 Output Total 10 Balance 850 -10 Intake: IV 850 0 Output: Estimated Blood Loss 10 Other: # Voids 5 3 2 # Bowel Movements 5 - Labs CBC & Chem 7: 11/22/22 08:00 11/22/22 08:00 Labs: Abnormal Lab Results - Last 24 Hours (Table) 11/22/22 11/22/22 Range/Units 08:00 08:00 Neutrophils # 7.9 H (1.3-7.7) k/uL Lymphocytes # 0.6 L (1.0-4.8) k/uL Sodium 134 L (137-145) mmol/L Glucose 126 H (74-99) mg/dL Calcium 8.3 L (8.4-10.2) mg/dL Microbiology - Last 24 Hours (Table) 11/20/22 14:29 Blood Culture - Preliminary Blood 11/20/22 14:29 Blood Culture - Preliminary Blood
[2022-11-23] MEDS: KETOROLAC 15 MG/ML 1 ML VIAL IVP SCH ×4 (00:23→18:15)
[2022-11-23] MEDS: ACETAMINOPHEN TAB 500 MG TAB PO SCH ×4 (00:24→18:13)
[2022-11-23] MEDS: SODIUM CHLORIDE 0.9% 1,000 ML IV SCH ×3 (03:33→18:17)
[2022-11-23] MEDS: PIPERACILLIN-TAZOBACTAM 3.375 GM in SODIUM CHLORIDE 0.9% 100 ML IVPB SCH ×3 (04:59→20:34)
[2022-11-23] MEDS: GABAPENTIN 300 MG CAP PO SCH ×3 (08:07→20:34)
--- NOTE | 2022-11-23 11:16 | US ---
EXAMINATION TYPE: US gallbladder DATE OF EXAM: 11/23/2022 COMPARISON: CT dated 11/20/2022 CLINICAL INDICATION: Male, 52 years old with history of Right upper quadrant pain; TECHNIQUE: Multiple sonographic images of the right upper quadrant are obtained. FINDINGS: EXAM MEASUREMENTS: Liver Length: 14.4 cm Gallbladder Wall: 0.3 cm CBD: 0.3 cm Right Kidney: 10.7 x 5.8 x 5.7 cm REAL [employer]STATE OPERATIONS MANAGER NOTES:Patient just had an appendectomy and is very tender. Pancreas: not well visualized, mostly obscured by bowel gas. Liver: small cystic area adjacent to gallbladder measures 0.9 x 0.9 x 0.9 cm. Gallbladder: No stones seen Evidence for sonographic Hathaway's sign: Yes CBD: wnl Right Kidney: No hydronephrosis or masses seen No suspicious fluid collections are evident. IMPRESSION: 1. No acute right upper quadrant ultrasound abnormality..
[2022-11-23] MEDS ORDERED: IOPAMIDOL CONTRAST (ORAL USE) VIAL PO PRN (14:08)
--- NOTE | 2022-11-23 14:08 | P.PN ---
Subjective Progress Note Date: 11/23/22 Principal diagnosis: He reports moderate right flank and right upper quadrant abdominal pain radiating to his back after eating. US gallbladder reviewed without gallstones identified. PLAN: 1. Location of right flank pain also includes possible kidney stones. Repeat CT without IV contrast with oral contrast 2. Continue IV antibiotics 3. Scheduled gas-x 4. Continue hospitalization Objective - Vital Signs Vital signs: Vital Signs Temp 97.6 F 11/23/22 08:00 Pulse 64 11/23/22 08:00 Resp 16 11/23/22 08:00 BP 136/91 11/23/22 08:00 Pulse Ox 95 11/23/22 09:13 FiO2 Intake & Output 11/22/22 11/23/22 11/23/22 18:59 06:59 18:59 Other: # Voids 2 3 # Bowel Movements 0 - Labs CBC & Chem 7: 11/22/22 08:00 11/22/22 08:00 Labs: Microbiology - Last 24 Hours (Table) 11/20/22 14:29 Blood Culture - Preliminary Blood 11/20/22 14:29 Blood Culture - Preliminary Blood
[2022-11-23] MEDS: SIMETHICONE 80 MG CHEWABLE PO SCH ×2 (15:25→20:34)
[2022-11-23] MEDS: MORPHINE SULFATE 2 MG/ML SYRINGE IVP PRN ×2 (15:25→20:41)
--- NOTE | 2022-11-23 16:35 | CT ---
EXAMINATION TYPE: CT abdomen pelvis wo con DATE OF EXAM: 11/23/2022 COMPARISON: 11/20/2022 HISTORY: right flank pain CT DLP: 1114.9 mGycm Automated exposure control for dose reduction was used. TECHNIQUE: Helical acquisition of images was performed from the lung bases through the pelvis. FINDINGS: There are mild chronic interstitial changes in the lung bases. The soft tissues of the left upper quadrant anterior abdominal wall there is a few droplets of air an d there is free air within the peritoneal cavity within the anterior midline in beneath right hemidia phragm. There are also droplets of air within the mesentery in the right flank adjacent to the tip of the cecum. There are mild inflammatory changes within the mesentery. Given the bowel appendicitis on the prior study findings raise the question of recent surgery for appendicitis. There is a contrast filled tubular structure which may represent a remnant of the appendix but there is no discrete peria ppendiceal abscess. There is no bowel obstruction. There is no free intraperitoneal fluid. There is no renal calcification or hydronephrosis. The caliber the abdominal aorta is normal. There is no pelvic mass or adenopathy. The osseous structures are intact. IMPRESSION: Mild increased mesenteric density adjacent to the cecum with a small contrast-filled structure which apparently represents a remnant of the appendix. There is free intraperitoneal air beneath the diaphr agm, in the anterior mid abdomen with droplets of air in the mesentery in the pericecal region norma north the possibility of recent surgery for appendicitis which was identified on the prior CT. There is n o discrete intra-abdominal abscess, free fluid or bowel obstruction. No other abnormality seen.
[2022-11-24] MEDS: ACETAMINOPHEN TAB 500 MG TAB PO SCH ×3 (00:09→11:48)
[2022-11-24] MEDS: KETOROLAC 15 MG/ML 1 ML VIAL IVP SCH ×3 (00:10→11:49)
[2022-11-24] MEDS: SODIUM CHLORIDE 0.9% 1,000 ML IV SCH ×2 (01:35→09:47)
[2022-11-24] MEDS: PIPERACILLIN-TAZOBACTAM 3.375 GM in SODIUM CHLORIDE 0.9% 100 ML IVPB SCH ×2 (04:57→11:49)
[2022-11-24 08:33] VITALS: BP 138/82; PULSE 64; RESP 18; TEMP 98
[2022-11-24] MEDS: GABAPENTIN 300 MG CAP PO SCH (09:46)
[2022-11-24] MEDS: SIMETHICONE 80 MG CHEWABLE PO SCH (09:46)
--- NOTE | 2022-11-24 11:09 | P.DS ---
Providers Date of admission: 11/20/22 13:31 Expected date of discharge: 11/24/22 Attending physician: Nata Mcgrath Consults: 11/20/22 16:14 Consult Physician Routine Consulting Provider: [facility] Consult Reason/Comments: [facility] Do you want consulting provider notified?: Yes Primary care physician: Patrice Obrien Hospital Course: Discharge diagnosis 1. Acute appendicitis, retrocecal with periappendicitis Hospital course The patient is a 52-year-old male who presents with over several week history with abdominal pain and diagnostic imaging of acute appendicitis. Patient is status post Robotic-assisted daVinci Xi laparoscopic appendectomy. Patient tolerated surgery well. His pain is controlled. He is tolerating diet. He has been up and ambulating. He is afebrile. He is stable for discharge. Physician [employer] Service Technician note has been reviewed by physician. Signing provider agrees with the documented findings, assessment, and plan of care. Patient Condition at Discharge: Stable Plan - Discharge Summary Discharge Rx Participant: No New Discharge Prescriptions: New Simethicone 40 mg/0.6 ml Drops [Mylicon Drops] 40 mg PO PCHS PRN #30 ml PRN Reason: gas Acetaminophen Tab [Tylenol] 1,000 mg PO Q6HR PRN #30 tablet PRN Reason: Pain Ibuprofen [Motrin] 600 mg PO Q8HR PRN #30 tab PRN Reason: Pain Continue Atorvastatin [Lipitor] 10 mg PO DAILY Losartan [Cozaar] 25 mg PO DAILY Discharge Medication List Atorvastatin [Lipitor] 10 mg PO DAILY 02/11/21 [History] Losartan [Cozaar] 25 mg PO DAILY 02/11/21 [History] Acetaminophen Tab [Tylenol] 1,000 mg PO Q6HR PRN #30 tablet 11/24/22 [Rx] Ibuprofen [Motrin] 600 mg PO Q8HR PRN #30 tab 11/24/22 [Rx] Simethicone 40 mg/0.6 ml Drops [Mylicon Drops] 40 mg PO PCHS PRN #30 ml 11/24/22 [Rx] Follow up Appointment(s)/Referral(s): Patrice Obrien DO [Primary Care Provider] - 1-2 days Nata Mcgrath MD [STAFF PHYSICIAN] - 12/09/22 Activity/Diet/Wound Care/Special Instructions: No lifting over 4 pounds in 4 weeks You May shower. No bath tub soaks for two weeks Use Tylenol and ibuprofen scheduled for the next 24-48 hours for best pain relief. Use ice along incisions for the today to prevent swelling. Telehealth follow-up appointment on 12/09/[address] Mcgrath Discharge Disposition: HOME SELF-CARE
== END 2022-11-24 12:15 | disposition home or self-care (01) | DRG 342 ==
LOC: EC 10:44 → OBSVTOIN 13:31 → 6NMEDSUR 13:31
PROVIDERS: ADMIT Surgery Plastic and Reconstructive Surgery; ATTEND Surgery Plastic and Reconstructive Surgery
PROC: 8E0W4CZ Robotic Assisted Procedure of Trunk Region, Percutaneous Endoscopic Approach (ICD-10-PCS; 2022-11-21)
PROC: 0DTJ4ZZ Resection of Appendix, Percutaneous Endoscopic Approach (ICD-10-PCS; principal; 2022-11-21 14:10)
DX: K35.80 Unspecified acute appendicitis (principal); K56.50 Intestinal adhesions [bands], unspecified as to partial versus complete obstruction; K40.90 Unilateral inguinal hernia, without obstruction or gangrene, not specified as recurrent; E78.5 Hyperlipidemia, unspecified; I10 Essential (primary) hypertension; N20.0 Calculus of kidney; Z87.891 Personal history of nicotine dependence; Z79.899 Other long term (current) drug therapy; Z28.310 Unvaccinated for COVID-19
CPT/HCPCS: 36415; 74176; 74177; 76705; 80053; 81001; 83605; 85025; 87040; 88304; 93005; 94760; 96365; 99285

== ENCOUNTER 2024-05-31 15:29 | Emergency (ER) | payer BC ==
[2024-05-31 15:36] VITALS: TEMP 98
--- NOTE | 2024-05-31 16:00 | ED ---
General Adult HPI - General Chief complaint: Abdominal Pain Stated complaint: Abd pain Time Seen by Provider: 05/31/24 15:30 Source: patient Mode of arrival: ambulatory Limitations: no limitations - History of Present Illness Initial comments: Dictation was produced using [employer] dictation software. please excuse any grammatical, word or spelling errors. Chief Complaint: 53-year-old male with no significant comorbidities presents to the ER for left lower quadrant abdominal pain History of Present Illness: Patient is 53-year-old male for the last 1 to 2 days has been having left lower quadrant abdominal pain. States that it feels like it is right next to his iliac crest. States that it seems to be more apparent with right lateral decubitus position. Patient [place] any fever chills or night sweats. No diarrhea. Patient has a history of diverticulitis The ROS documented in this emergency department record has been reviewed and confirmed by me. Those systems with pertinent positive or negative responses have been documented in the HPI. All other systems are other negative and/or noncontributory. - Related Data Home Medications Medication Instructions Recorded Confirmed Atorvastatin [Lipitor] 10 mg PO DAILY 02/11/21 11/20/22 Losartan [Cozaar] 25 mg PO DAILY 02/11/21 11/20/22 Previous Rx's Medication Instructions Recorded Acetaminophen Tab [Tylenol] 1,000 mg PO Q6HR PRN #30 tablet 11/24/22 Ibuprofen [Motrin] 600 mg PO Q8HR PRN #30 tab 11/24/22 Simethicone 40 mg/0.6 ml Drops 40 mg PO PCHS PRN #30 ml 11/24/22 [Mylicon Drops] Amoxic-Pot Clav 875-125Mg 1 tab PO Q8H 5 Days #15 tab 05/31/24 [Augmentin 875-125] Allergies Allergy/AdvReac Type Severity Reaction Status Date / Time No Known Allergies Allergy Verified 05/31/24 15:36 Review of Systems ROS Statement: Those systems with pertinent positive or pertinent negative responses have been documented in the HPI. ROS Other: All systems not noted in ROS Statement are negative. Past Medical History Past Medical History: No Reported History, Hypertension History of Any Multi-Drug Resistant Organisms: None Reported Past Surgical History: Hernia Repair, Orthopedic Surgery Additional Past Surgical History / Comment(s): colonoscopy Past Psychological History: No Psychological Hx Reported Smoking Status: Former smoker, Never smoker Past Alcohol Use History: Occasional Past Drug Use History: None Reported General Exam - General Exam Comments Initial Comments: PHYSICAL EXAM: General Impression: Alert and oriented x3, not in acute distress HEENT: Normocephalic atraumatic, extra-ocular movements intact, pupils equal and reactive to light bilaterally, mucous membranes moist. Cardiovascular: Heart regular rate and rhythm Chest: Able to complete full sentences, no retractions, no tachypnea Abdomen: abdomen soft, palpatory left lower quadrant tenderness, non-distended, no organomegaly Musculoskeletal: Pulses present and equal in all extremities, no peripheral edema Motor: no focal deficits noted Neurological: CN II-XII grossly intact, no focal motor or sensory deficits noted Skin: Intact with no visualized rashes Psych: Normal affect and mood Limitations: no limitations Course Vital Signs 05/31/24 15:33 Temperature 98.0 F Pulse Rate 107 H Respiratory 20 Rate Blood Pressure 142/91 O2 Sat by Pulse 96 Oximetry Medical Decision Making - Medical Decision Making Was pt. sent in by a medical professional or institution (, PA, SKIRT MAKER, urgent care, hospital, or shelter...) When possible be specific @ -No Did you speak to anyone other than the patient for history (EMS, parent, family, police, friend...)? What history was obtained from this source @ -No Did you review nursing and triage notes (agree or disagree)? Why? @ -I reviewed and agree with nursing and triage notes Were old charts reviewed (outside hosp., previous admission, EMS record, old EKG, old radiological studies, urgent care reports/EKG's, shelter records)? Report findings @ -No old charts were reviewed Differential Diagnosis (chest pain, altered mental status, abdominal pain women, abdominal pain men, vaginal bleeding, musculoskeletal, weakness, fever, dyspnea, syncope, headache, dizziness, GI bleed, back pain, seizure, CVA, palpatations, mental health)? @ -Differential Abdominal Pain Men: Appendicitis, cholecystitis, diverticulosis, ischemic bowel, pancreatitis, hepatitis, UTI, gastroenteritis, AAA, incarcerated hernia, bowel obstruction, constipation, inflammatory bowel, hepatitis, peptic ulcer disease, splenic infarction, perforated viscus, testicular torsion, this is not meant to be an all-inclusive list EKG interpreted by me (3pts min.). @ -None done X-rays interpreted by me (1pt min.). @ -None done CT interpreted by me (1pt min.). @ -CT abdomen pelvis shows acute uncomplicated diverticulitis U/S interpreted by me (1pt. min.). @ -None done What testing was considered but not performed or refused? (CT, X-rays, U/S, labs)? Why? @ -None What meds were considered but not given or refused? Why? @ -None Was smoking cessation discussed for >3mins.? @ -No Were there social determinants of health that impacted care today? How? (Homelessness, low income, unemployed, alcoholism, drug addiction, transportation, low edu. Level, literacy, decrease access to med. care, half-way, rehab)? @ -No Was there de-escalation of care discussed even if they declined (Discuss DNR or withdrawal of care, Hospice)? DNR status @ -No What co-morbidities impacted this encounter? (DM, HTN, Smoking, COPD, CAD, Cancer, CVA, ARF, Chemo, Hep., AIDS, mental health diagnosis, sleep apnea, morbid obesity)? @ -None Was patient admitted / discharged? Hospital course, mention meds given and route, prescriptions, significant lab abnormalities, going to OR and other pertinent info. @ -53-year-old male presents with abdominal pain. Vital signs stable. Patient well-appearing at the bedside he has some palpatory abdominal tenderness to the left lower quadrant. No leukocytosis on CBC. Rest of labs unremarkable. CT shows uncomplicated diverticulitis. Patient reevaluated bedside at 5:12 PM found to be stable to condition. Patient discharged with antibiotics and strict return precautions. Patient told to follow-up with primary care doctor. Did you discuss the management of the patient with other professionals (professionals i.e. , PA, SKIRT MAKER, lab, RT, psych nurse, social insurance specialist, senior controls technician, teacher, bomb squad officer, bilingual patient support caseworker)? Give summary @ -No Was critical care preformed (if so, how long)? @ -No Undiagnosed new problem with uncertain prognosis? @ -No Drug Therapy requiring intensive monitoring for toxicity (Heparin, Nitro, Insulin, Cardizem)? @ -No Were any procedures done? @ -No Diagnosis/symptom? Acute, or Chronic, or Acute on Chronic? Uncomplicated (without systemic symptoms) or Complicated (systemic symptoms)? @ -Uncomplicated diverticulitis Side effects of treatment? @ -No Exacerbation, Progression, or Severe Exacerbation? @ -No Poses a threat to life or bodily function? How? (Chest pain, USA, PR, pneumonia, PE, COPD, DKA, ARF, appy, cholecystitis, CVA, Diverticulitis, Homicidal, Suicidal, threat to staff... and all critical care pts) @ -yes - Lab Data Result diagrams: 05/31/24 15:59 05/31/24 15:59 Lab Results 05/31/24 05/31/24 Range/Units 15:59 15:59 WBC 6.5 (3.8-10.6) k/uL RBC 5.41 (4.30-5.90) m/uL Hgb 16.2 (13.0-17.5) gm/dL Hct 48.7 (39.0-53.0) % MCV 90.1 (80.0-100.0) fL MCH 30.0 (25.0-35.0) pg MCHC 33.3 (31.0-37.0) g/dL RDW 12.7 (11.5-15.5) % Plt Count 235 (150-450) k/uL MPV 7.3 Neutrophils % (Manual) 59 % Lymphocytes % (Manual) 31 % Monocytes % (Manual) 7 % Eosinophils % (Manual) 3 % Neutrophils # (Manual) 3.84 (1.3-7.7) k/uL Lymphocytes # (Manual) 2.02 (1.0-4.8) k/uL Monocytes # (Manual) 0.46 (0-1.0) k/uL Eosinophils # (Manual) 0.20 (0-0.7) k/uL Nucleated RBCs 0 (0-0) /100 WBC Manual Slide Review Performed Large Platelets Present Sodium 139 (137-145) mmol/L Potassium 4.2 (3.5-5.1) mmol/L Chloride 101 (98-107) mmol/L Carbon Dioxide 26 (22-30) mmol/L Anion Gap 12 mmol/L BUN 28 H (9-20) mg/dL Creatinine 0.91 (0.66-1.25) mg/dL Est GFR (CKD-EPI)AfAm >90 (>60 ml/min/1.73 sqM) Est GFR (CKD-EPI)NonAf >90 (>60 ml/min/1.73 sqM) Glucose 87 (74-99) mg/dL Calcium 9.0 (8.4-10.2) mg/dL Total Bilirubin 0.8 (0.2-1.3) mg/dL AST 29 (17-59) U/L ALT 26 (4-49) U/L Alkaline Phosphatase 71 (38-126) U/L Total Protein 7.0 (6.3-8.2) g/dL Albumin 4.4 (3.5-5.0) g/dL Lipase 103 (23-300) U/L Disposition Clinical Impression: Diverticulitis Disposition: HOME SELF-CARE Condition: Fair Instructions (If sedation given, give patient instructions): Diverticulitis (ED) Prescriptions: Amoxic-Pot Clav 875-125Mg [Augmentin 875-125] 1 tab PO Q8H 5 Days #15 tab Is patient prescribed a controlled substance at d/c from ED?: No Referrals: Patrice Obrien DO [Primary Care Provider] - 1-2 days Time of Disposition: 17:13
[2024-05-31 16:07] LABS: HCT 48.7 % (39.0-53.0); HGB 16.2 gm/dL (13.0-17.5); MCHC 33.3 g/dL (31.0-37.0); MCV 90.1 fL (80.0-100.0); Mean Platelet Volume 7.3; Platelet Count 235 k/uL (150-450); RBC 5.41 m/uL (4.30-5.90); RDW 12.7 % (11.5-15.5); WBC 6.5 k/uL (3.8-10.6)
[2024-05-31 16:19] LABS: ALT 26 U/L (4-49); AST 29 U/L (17-59); African American GFR (CKD) >90 (>60 ml/min/1.73 sqM); Albumin 4.4 g/dL (3.5-5.0); Alkaline Phosphatase 71 U/L (38-126); Anion Gap 12 mmol/L; Blood Urea Nitrogen 28 mg/dL (9-20); Carbon Dioxide 26 mmol/L (22-30); Chloride 101 mmol/L (98-107); Glucose 87 mg/dL (74-99); Lipase 103 U/L (23-300); Non-African American GFR(CKD) >90 (>60 ml/min/1.73 sqM); Potassium 4.2 mmol/L (3.5-5.1); Sodium 139 mmol/L (137-145); Total Bilirubin 0.8 mg/dL (0.2-1.3)
--- NOTE | 2024-05-31 16:25 | CT ---
EXAMINATION TYPE: CT abdomen pelvis w con CT DLP: 1579.6 mGycm, Automated exposure control for dose reduction was used. DATE OF EXAM: 05/31/2024 4:19 PM COMPARISON: CT abdomen pelvis 11/23/2022, 11/20/2022, gallbladder ultrasound 11/23/2022 CLINICAL INDICATION:Male, 53 years old with history of LLQ abd pain; LLQ pain TECHNIQUE: Standard CT of the abdomen and pelvis following the administration of 100 cc of Isovue 3 00 IV contrast material. Coronal and sagittal reformats were performed. FINDINGS: LOWER CHEST: Linear scarring and/or atelectasis within the right middle lobe. ABDOMEN LIVER: A few hepatic cysts with largest in the anterior left hepatic lobe measuring up to 1.5 cm. GALLBLADDER AND BILE DUCTS: Unremarkable. PANCREAS: Unremarkable. SPLEEN: Unremarkable. ADRENAL GLANDS: Unremarkable. KIDNEYS AND URETERS: No evidence of hydronephrosis or renal calculus. The kidneys enhance symmetrical ly. Contrast is demonstrated within both collecting systems and proximal ureters on the delayed phase . PELVIS BLADDER: Unremarkable REPRODUCTIVE: Unremarkable. ABDOMEN & PELVIS STOMACH AND BOWEL: Stomach and duodenum are unremarkable. The appendix is surgically absent. Distal c olonic diverticulosis with mild wall thickening and surrounding region of fat stranding involving the descending colon (series 201, image 46). No surrounding organized fluid collection. No pneumatosis. No evidence of bowel obstruction. PERITONEUM: No evidence of pneumoperitoneum or free fluid. VASCULATURE: No evidence of aortic aneurysm. MUSCULOSKELETAL: No acute osseous abnormalities. Grade 1 anterolisthesis of L5 on S1 with bilateral p ars defects. Moderate to advanced degenerative disc disease at this level. LYMPH NODES: No evidence for lymphadenopathy. SOFT TISSUE/ABDOMINAL WALL: Postsurgical changes of the anterior pelvic wall due to hernia repair wit h mesh anchors. IMPRESSION: Acute uncomplicated diverticulitis involving the descending colon. [facility], , 05/31/2024 4:23 PM
[2024-05-31 17:05] LABS: Lymphocytes # (M) 2.02 k/uL (1.0-4.8); Monocytes # (M) 0.46 k/uL (0-1.0); Neutrophils # (M) 3.84 k/uL (1.3-7.7); Neutrophils % (M) 59 %; Nucleated Red Blood Cells 0 /100 WBC (0-0); Total Cells Counted 100
[2024-05-31 17:06] LABS: Large Platelets Present
[2024-05-31 17:28] VITALS: BP 133/99; PULSE 75; RESP 18
== END 2024-05-31 17:27 | disposition home or self-care (01) ==
LOC: EC 15:29
DX: K57.32 Diverticulitis of large intestine without perforation or abscess without bleeding (principal); Z87.891 Personal history of nicotine dependence
CPT/HCPCS: 36415; 80053; 83690; 85025; 74177; 99284; Q9967